=== PATIENT | male | born 1995 | race Caucasian/White ===

== ENCOUNTER 2024-02-20 20:18 | Emergency (ER) | payer OTHER | END 2024-02-20 21:33 | disposition home or self-care (01) | LOC: MADERS 20:18 | DX: S86.912A Strain of unspecified muscle(s) and tendon(s) at lower leg level, left leg, initial encounter (principal); I10 Essential (primary) hypertension; W10.8XXA Fall (on) (from) other stairs and steps, initial encounter ==